=== PATIENT | female | born 1940 | race Caucasian/White ===

== ENCOUNTER 2023-10-30 21:49 | Emergency (ER) | payer OTHER, SELFPAY ==
[2023-10-30 21:51] VITALS: BP 140/82
[2023-10-30 22:14] LABS: % Basophils 0.6 % (0-2); % Eosinophils 1.6 % (0-6); % Immature Granulocytes 0.4 % (0-0.5); % Lymphocytes 17.4 % (20.5-51.1); % Monocytes 5.3 % (1.7-9.3); % Neutrophils 74.7 % (42.2-75.2); Absolute Basophils 0.1 10^3/uL (0-0.2); Absolute Eosinophils 0.1 10^3/uL (0-0.7); Absolute Lymphocytes 1.4 10^3/uL (1.2-3.4); Absolute Monocytes 0.4 10^3/uL (0.1-0.6); Absolute Neutrophils 6.2 10^3/uL (1.4-6.5); Hematocrit 39.7 % (37.0-47.0); Hemoglobin 13.5 g/dL (12.0-16.0); Mean Corpuscular Hgb 29.9 pg (27.0-31.0); Mean Platelet Volume 10.4 fL (7.4-10.4); Nucleated Red Blood Cells % 0 %; Platelet Count 349 10^3/uL (130-400); Red Blood Cell Count 4.51 10^6/uL (4.20-5.40); Red Cell Dist. Width 14.6 % (11.5-14.5); White Blood Cell Count 8.3 10^3/uL (4.8-10.8)
[2023-10-30 22:20] LABS: ALT (SGPT) 14 U/L (0-35); AST (SGOT) 22 U/L (14-36); Alkaline Phosphatase 92 U/L (38-126); Blood Urea Nitrogen 12 mg/dl (7-17); Calcium 9.6 mg/dl (8.4-10.2); Carbon Dioxide 24 mmol/L (22-30); Chloride 106 mmol/L (98-107); Glucose 158 mg/dl (70-99); Lipase 188 U/L (23-300); Potassium 3.5 mmol/L (3.5-5.1); Sodium 136 mmol/L (135-145); Total Bilirubin 0.8 mg/dl (0.2-1.3); Total Protein 7.4 g/dl (6.3-8.2); eGFR > 60.00
[2023-10-30 22:47] VITALS: BMI 21.2
--- NOTE | 2023-10-30 22:48 | ED.GENMED ---
History of Present Illness
General
Chief Complaint: Abdominal Pain
Source: patient
Exam Limitations: none
Time Seen by Provider: 10/30/23 22:34
Travel History
Have you had any contact with someone who has COVID-19?: No
Do you have any symptoms of coronavirus? Fever > 100 degrees, chills, cough, shortness of breath, sore throat, loss of taste or smell, muscle aches, or headache?: No
History of Present Illness
History of Present Illness:
This is a 82 year old female that comes in with c/o abd pain. States that this started on today. States that she was diagnosed with a UTI on Sunday and was placed on Nitrofurantoin. States that her abd pain comes and goes. States that she is
nauseated and had diarrhea today. States that she also had chills. Patient denies an headache at this time but daughter states that she had a headache. Denies any fever, chest pain, SOB, vomiting, headache, dizziness, urinary burning or frequency.
Past History
Past History
ED Past Medical History: Asthma, HTN, Hypercholesterolemia and Other (Hep B, UTI)
ED Past Surgical History: Appendectomy, Cholecystectomy, Orthopedic (Right knee replacement and then revision, ORIF of Humerus. ), Tonsilectomy and Other (Partial thyroidectomy)
Social History
Tobacco: Former smoker
Alcohol: None
Personal:
Living: alone
Review of Systems
Review of Systems
All Other Systems: ROS reviewed and negative except as documented in HPI and ROS
Constitutional: Reports chills; Denies fever
EENT: Reports no symptoms
Respiratory: Reports no symptoms; Denies cough or trouble breathing
Phy Exam
General Physical Exam
General Presentation: mild distress
General age: appears stated age
General Skin: warm and dry
General Habitus: elderly
General Mental: alert
General Hydration: dry mucous membranes
ENT Exam
ENT Exam: TM's normal, pharynx normal and neck supple
Eye Exam
Eye Exam: EOMI
Cardiovascular Exam
Cardiovascular Exam: regular rate/rhythm, no edema, no murmur and normal peripheral pulses
Pulmonary Exam
Pulmonary Exam: lungs clear, no respiratory distress, no rales, chest non tender, no crackles, no rhonchi, no wheezing and no cough
Gastrointestinal Exam
Gastrointestinal Exam: normal bowel sounds, soft, no organomegaly, no pulsatile mass, non distended and tender (Generalized tenderness with palpation)
Musculoskeletal Exam
Musculoskeletal Exam: full ROM and no edema
Skin Exam
Skin Exam: normal color, warm/dry, no rash and no petechia
Psychiatric Exam
Psychiatric Exam: normal mood/affect
Course
Orders/Labs/Results
Orders:
Orders
10/30/23 22:00
CMP [Comprehensive Metabolic Panel] Urgent
Complete Blood Count/With Diff Urgent
Lipase Urgent
10/30/23 22:45
0.9% Sodium Chloride 1000 ml [Nss] 1,000 ml IV BOLUS
10/30/23 22:47
Iohexol [Omnipaque] See Protocol PO NOW STA
Ketorolac [Toradol] 30 mg IV NOW STA
10/30/23 22:55
Phenazopyridine HCl [Pyridium] 100 mg PO NOW STA
10/30/23 23:27
Lactic Acid Urgent
10/30/23 23:53
Urinalysis Reflex To Culture Urgent
Date Specimen was Collected: 10/30/23
Time Specimen was Collected: 23:46
Urine Microscopic Reflex Cult Urgent
10/30/23 23:59
Ondansetron Injectable [Zofran] 4 mg IV NOW STA
10/31/23 01:30
CT Abd/pel (oral only)-[facility] Only Urgent
Comment: pt allergic to iodine, per Virgie ok to modify to oral contrast only
Reason For Exam: Generalized abd pain
Abnormal Lab Results
10/30/23 10/30/23
22:00 23:53
RDW 14.6 H %
(11.5-14.5)
Lymphocytes % 17.4 L %
(20.5-51.1)
Glucose 158 H mg/dl
(70-99)
Urine Ketones 1+ A
(Negative)
Leukocyte Esterase Rfl Trace A
(Negative)
Urine RBC 3-6 A /HPF
(0-2)
Urine Bacteria (Reflex) Few A
(Negative)
10/30/23 22:00
10/30/23 22:00
Glucose nonfasting, Lipae normal at 188, Urine negative for infection (patient is on antibiotic for UTI)
Vital Signs
Initial and Last Documented VS:
Initial Vital Signs
Temp Pulse Resp BP Pulse Ox
98.4 F 92 24 140/82 94
10/30/23 21:51 10/30/23 21:51 10/30/23 21:51 10/30/23 21:51 10/30/23 21:51
Last Documented Vital Signs
Temp Pulse Resp BP Pulse Ox
98.4 F 90 15 149/93 96
10/30/23 21:51 10/31/23 01:00 10/31/23 01:00 10/31/23 00:00 10/31/23 01:00
MDM/Problems Addressed
Differential Diagnosis Includes:
Enteritis, UTI, Bladder spasm
MDM/Problems Addressed:
This is a 82 year old female that comes in with c/o abd pain that comes and goes. States that she was diagnosed with a UTI on Sunday and patient was placed on Nitrofurantoin. States that she has nausea, diarrhea today and that her stomach pain is
all over. States that she has had chills and her daughter states that she has had a headache but patient denies.
Will check labs, CT abd/pelvis, and give Pyridium to see if this is bladder spasm. Will also give IV fluids.
Back into see patient. Explained that her blood work is normal long with her lactic acid. Urine at this time is negative for infection so explained that the antibiotic is working. Feel that she may have been having bladder spasms. Will give patient
Pyridium and Zofran for nausea. Patient to increase her water intake to 8-8oz glasses daily. Follow up with the family doctor for recheck. Return with fever, increased or changing pain.
Chronic conditions affecting care:
UTI
Acute Exacerbation and/or Progression of Chronic Illness:
UTI
*Radiology
Radiology exam reviewed: radiology read reviewed (CT night hawk- Comparison with 09/16/2022. Decreased sensitivity in the evaluation of the abd viscera due to lack of IV contrast. Again seen, moderate right hydroureteronephrosis with decompression
of the ureter at the level of the pelvic brim. No obstructing stone. Findiings could reflect right-), all reviewed NAD by ED Provider (CT cont- could reflex right sided ureteral obstruction in the setting of stricture. Correlate urologic history. No
evidence of left hydroureteronephrosis or obstructing stone. No signficant perinephric fat stranding. Cholecystectomy. No appendicitis or colits. Diverticulosis without diverticulitis. ) and other (CT cont- No evidence of small bowel obstruction. NO
free fluid or free air. No AAA. Chronic right pelvic fracture. )
*Pulse Oximetry
Patient hypoxic: no
*EKG
Interpreted by ED Provider?: NA
Rate: EKG- N/A
*Rope Coiling Machine Operator Interpretation
Rate: Rope Coiling Machine Operator- N/A
*Critical Care Note
Total Time (30-74mins, 75-104mins- exclusive of procedures): Not Applicable
ED Attending Note
-
Portions of this chart may have been created with voice recognition software.� Occasional wrong word or��sound alike� substitutions may have occurred due to the inherent limitations of voice recognition software.
Discharge Plan
Departure
Patient Disposition: Home (Routine Discharge)
Date of Disposition: 10/31/23
Time of Disposition: 02:23
Patient with high blood pressure during this ER visit?: Yes
Condition: Good
Covid-19: Not Applicable
Discharge Problem:
Painful bladder spasm
Instructions: Bladder Spasms (DC), BLOOD PRESSURE
Prescriptions:
New
phenazopyridine [Pyridium] 100 mg tablet
100 mg PO TID PRN (Reason: Bladder spasm and pain) Qty: 6 0RF
ondansetron 4 mg tablet,disintegrating
4 mg PO Q8H PRN (Reason: nausea and vomiting) Qty: 7 0RF
No Action
amlodipine 2.5 MG tablet
2.5 mg PO DAILY
levothyroxine 50 MCG tablet
50 mcg PO DAILY
folic acid 1 MG tablet
1 mg PO DAILY
alendronate [Fosamax] 70 mg Tablet
70 mg PO FR
pravastatin 10 mg tablet
10 mg PO QPM
methotrexate sodium 2.5 mg Tablet
10 mg PO FR
cholecalciferol (vitamin D3) [Vitamin D3] 25 mcg (1,000 unit) Tablet
25 mcg PO DAILY
cranberry extract [Ellura] 200 mg Capsule
36 mg PO DAILY
infliximab [Remicade] 100 mg Recon Soln
100 mg IV Q8W
Hold Instructions: Resume on 05/07/23.
losartan 25 mg Tablet
25 mg PO DAILY Qty: 30 0RF
Patient Comments:
09/16/22-patient only takes 1 a day , and she need the smallest tablet avaiable b/e she can not swallow the larger tablets, patient bring in her own losartan
lorazepam 0.5 mg Tablet
0.5 mg PO HS PRN (Reason: sleep)
Patient Comments:
10/30/2023: last filled 09/08/23, 40 tabs for 40 days from [facility]#[id number]
gabapentin 300 mg capsule
300 mg PO HS Qty: 10 0RF
nitrofurantoin monohyd/m-cryst 100 mg capsule
100 mg PO BID
Patient Comments:
10/30/2023: Family states this was just started. Med filled 10/29/23, unsure of last dose.
Referrals:
Nevin Child MD [Family Provider] - Follow up in 5-7 days
Activity Restrictions/Additional Instructions:
As discussed, your blood work is normal along with your CT scan. There is no bowel obstruction or inflammatory process. There are no ureteral calculus. Your discomfort may have been from bladder spasm. You have had a prescription sent to your
Pharmacy for Pyridium to help with the pain and spasming and also a Prescription for Zofran to help with any nausea. Please increase your water intake to 8-8oz glasses daily. Follow up with the family doctor in the next 5-7 days for recheck. IF YOU
HAVE FEVER, INCREASED OR CHANGING PAIN OR YOU HAVE ANY OTHER CONCERNS PLEASE RETURN TO THE EMERGENCY ROOM.
Interventions
Interventions:
*Risk Screen - Suicide Last Done: 10/30/23 21:51
*Neglect/Abuse Screening Last Done: 10/30/23 21:51
ED- Fall Risk Assessment Last Done: 10/30/23 23:25
VT-Hljkes-Wlpqtobzkv Assessment Last Done: 10/30/23 23:25
ED- Neurological Assessment Last Done: 10/30/23 23:25
[2023-10-30] MEDS: Pyridium 100 MG PO (23:39)
[2023-10-30] MEDS: TORADOL 30 MG IV (23:39)
[2023-10-30 23:40] VITALS: BP 148/94
[2023-10-30] MEDS: OMNIPAQUE 50 ML PO (23:41)
[2023-10-30] MEDS: NSS 1000 IV (23:42)
[2023-10-30 23:56] LABS: Lactic Acid 1.6 mmol/L (0.7-2.0)
[2023-10-30] MEDS: ZOFRAN 4 MG IV (23:59)
[2023-10-31] VITALS: BP 149/93
[2023-10-31 00:02] LABS: Urine Albumin Negative (Neg - Trace); Urine Bilirubin Negative (Negative); Urine Character Clear (Clear); Urine Color Yellow; Urine Glucose Negative (Negative); Urine Ketone 1+ (Negative); Urine Leukocyte Trace (Negative); Urine Nitrite Negative (Negative); Urine Occult Blood Negative (Negative); Urine Specific Gravity 1.015 (<1.030); Urine Urobilinogen Negative (Neg - 1+)
[2023-10-31 00:25] LABS: Urine Squamous Cell 0-2 /LPF (Few)
[2023-10-31 00:26] LABS: Urine Bacteria Few (Negative)
[2023-10-31 01:27] VITALS: BP 138/87
[2023-10-31 02:00] VITALS: BP 137/84
== END 2023-10-31 02:30 | disposition home or self-care (01) ==
LOC: EMR 21:49
PROVIDERS: Clinical Nurse Specialist Family Health; EMERGENCY PHYSICIAN Emergency Medicine; FAMILY PHYSICIAN Family Medicine
DX: N32.89 Other specified disorders of bladder (principal); R10.9 Unspecified abdominal pain; R11.0 Nausea; R19.7 Diarrhea, unspecified; R68.83 Chills (without fever); N39.0 Urinary tract infection, site not specified; N13.30 Unspecified hydronephrosis; K57.30 Diverticulosis of large intestine without perforation or abscess without bleeding; I10 Essential (primary) hypertension; E78.00 Pure hypercholesterolemia, unspecified; J45.909 Unspecified asthma, uncomplicated; Z90.49 Acquired absence of other specified parts of digestive tract; Z87.440 Personal history of urinary (tract) infections; Z96.651 Presence of right artificial knee joint; Z87.891 Personal history of nicotine dependence; Z91.040 Latex allergy status; Z88.5 Allergy status to narcotic agent; Z88.2 Allergy status to sulfonamides; Z88.8 Allergy status to other drugs, medicaments and biological substances; Z91.018 Allergy to other foods
CPT/HCPCS: 99284; 96374; 96375; 96361; 74176; 80053; 81003; 81015; 83605; 83690; 85025

== ENCOUNTER 2024-03-07 17:20 | Emergency (ER) | payer OTHER, SELFPAY ==
[2024-03-07 17:23] VITALS: BP 152/92
[2024-03-07 17:46] LABS: Urine Albumin 3+ (Neg - Trace); Urine Bilirubin Negative (Negative); Urine Character Very Cloudy (Clear); Urine Color Yellow; Urine Glucose Negative (Negative); Urine Ketone Negative (Negative); Urine Leukocyte 2+ (Negative); Urine Nitrite Positive (Negative); Urine Occult Blood 4+ (Negative); Urine Urobilinogen Negative (Neg - 1+)
[2024-03-07 17:52] LABS: Urine White Cell >100 /HPF (0-5)
[2024-03-07 18:33] LABS: ALT (SGPT) 15 U/L (0-35); AST (SGOT) 27 U/L (14-36); Alkaline Phosphatase 57 U/L (38-126); Blood Urea Nitrogen 24 mg/dl (7-17); Calcium 9.7 mg/dl (8.4-10.2); Carbon Dioxide 23 mmol/L (22-30); Chloride 104 mmol/L (98-107); Glucose 135 mg/dl (70-99); Potassium 4.3 mmol/L (3.5-5.1); Sodium 136 mmol/L (135-145); Total Bilirubin 1.1 mg/dl (0.2-1.3); Total Protein 7.5 g/dl (6.3-8.2); eGFR > 60.00
[2024-03-07 18:51] VITALS: BP 121/82
[2024-03-07 18:52] VITALS: BMI 21.9
[2024-03-07 19:00] VITALS: BP 117/73
--- NOTE | 2024-03-07 19:06 | ED.GENMED ---
History of Present Illness
General
Chief Complaint: Urinary Symptoms
Source: patient and records
Time Seen by Provider: 03/07/24 18:27
Nursing documentation reviewed up to this point in time: agreed with
Travel History
Have you had any contact with someone who has COVID-19?: No
Do you have any symptoms of coronavirus? Fever > 100 degrees, chills, cough, shortness of breath, sore throat, loss of taste or smell, muscle aches, or headache?: No
History of Present Illness
History of Present Illness:
Patient is an 83-year-old female presents to the emergency department thinking she has a UTI. Patient complains of frequency and urgency. Patient denies any hematuria but admits to feeling lower abdominal pressure and dysuria as well as
right-sided back pain. Patient denies fever or chills, nausea, vomiting or diarrhea. Patient states this started approximately week ago. Patient saw her physician was put on Pyridium and Augmentin for 3 days. However the symptoms did not resolve
and last night she began to feel poorly again.
Past History
Past History
ED Past Medical History: Asthma, HTN, Hypercholesterolemia, Hypothyroidism and Other (Hep B, UTI, osteoarthritis, degenerative disc disease, anxiety, osteoporosis, insomnia)
ED Past Surgical History: Appendectomy, Cholecystectomy, Orthopedic (Right knee replacement and then revision, ORIF of Humerus. ), Tonsilectomy and Other (Partial thyroidectomy)
Social History
Tobacco: Former smoker
Alcohol: None
Personal:
Living: alone
Review of Systems
Review of Systems
All Other Systems: ROS reviewed and negative except as documented in HPI and ROS
Constitutional: Reports fatigue; Denies fever, night sweats or chills
EENT: Reports no symptoms
Respiratory: Reports no symptoms
ABD/GI: Reports abdominal pain; Denies nausea, vomiting or diarrhea
: Reports dysuria and urgency; Denies bleeding
Musculoskeletal: Reports back pain
Skin: Reports no symptoms
Neurological: Reports no symptoms
Hematologic/Lymphatic: Reports no symptoms
Phy Exam
Physical Exam
Physical Exam:
Physical Exam
General: No apparent distress, alert and appropriate, elderly and frail, well hydrated
HENT: Normocephalic, supple with no lymphadenopathy, no thyromegaly
Eyes: Clear sclera, conjuctiva without injection
Heart: Regular rhythm and rate. No S3, S4. No murmur.
Lungs: No respiratory distress, no stridor, lung sounds clear and equal bilaterally
Abdomen: Soft, mild suprapubic tenderness without guarding or rebound, no organomegaly, minimal right CVA tenderness, BS good
Neuro: Alert and oriented x 3, CN II - XII intact, no motor focality, no cerebellar dysfunction
Skin: no rash
Psychiatric: well kept. interactive and cooperative
Extremities: No edema, cyanosis, tenderness
Course
Orders/Labs/Results
Orders:
Orders
03/07/24 17:35
Comprehensive Metabolic Panel Urgent
Urinalysis Reflex To Culture Urgent
Date Specimen was Collected: 03/07/24
Time Specimen was Collected: 17:27
Urine Microscopic Reflex Cult Urgent
Urine Culture Urgent
JAYLYN Source: U
Specimen Description:
Date Specimen was Collected: 03/07/24
Time Specimen was Collected: 17:27
03/07/24 19:08
Complete Blood Count/With Diff Urgent
Abnormal Lab Results
03/07/24 03/07/24
17:35 19:08
RBC 4.11 L 10^6/uL
(4.20-5.40)
MPV 10.7 H fL
(7.4-10.4)
Absolute Neuts (auto) 7.2 H 10^3/uL
(1.4-6.5)
Absolute Lymphs (auto) 1.0 L 10^3/uL
(1.2-3.4)
Absolute Monos (auto) 0.9 H 10^3/uL
(0.1-0.6)
Neutrophils % 77.6 H %
(42.2-75.2)
Lymphocytes % 11.1 L %
(20.5-51.1)
Monocytes % 10.1 H %
(1.7-9.3)
BUN 24 H mg/dl
(7-17)
Glucose 135 H mg/dl
(70-99)
Ur Occult Blood Reflex 4+ A
(Negative)
Urine Nitrite (Reflex) Positive A
(Negative)
Leukocyte Esterase Rfl 2+ A
(Negative)
Urine WBC (Reflex) >100 A /HPF
(0-5)
Urine Albumin (Reflex) 3+ A
(Neg - Trace)
03/07/24 19:08
03/07/24 17:35
Vital Signs
Initial and Last Documented VS:
Initial Vital Signs
Temp Pulse Resp BP Pulse Ox
98.2 F 95 18 152/92 97
03/07/24 17:23 03/07/24 17:23 03/07/24 17:23 03/07/24 17:23 03/07/24 17:23
Last Documented Vital Signs
Temp Pulse Resp BP Pulse Ox
98.2 F 95 18 121/82 95
03/07/24 17:23 03/07/24 17:23 03/07/24 17:23 03/07/24 18:51 03/07/24 18:52
*Radiology
Radiology exam reviewed: other (na)
*Pulse Oximetry
Patient hypoxic: no
*EKG
Interpreted by ED Provider?: NA
*Hand Grinder Interpretation
Rate: Hand Grinder- N/A
*Critical Care Note
Total Time (30-74mins, 75-104mins- exclusive of procedures): Not Applicable
ED Attending Note
-
Portions of this chart may have been created with voice recognition software.� Occasional wrong word or��sound alike� substitutions may have occurred due to the inherent limitations of voice recognition software.
Discharge Plan
Departure
Patient Disposition: Home (Routine Discharge)
Date of Disposition: 03/07/24
Time of Disposition: 19:27
Patient with high blood pressure during this ER visit?: No
Covid-19: Not Applicable
Discharge Problem:
UTI (urinary tract infection)
Instructions: Urinary Tract Infection, Adult (DC)
Prescriptions:
New
ciprofloxacin HCl [Cipro] 250 mg tablet
250 mg PO BID 3 Days Qty: 6 0RF
No Action
amlodipine 2.5 MG tablet
2.5 mg PO DAILY
levothyroxine 50 MCG tablet
50 mcg PO DAILY
folic acid 1 MG tablet
1 mg PO DAILY
alendronate [Fosamax] 70 mg Tablet
70 mg PO FR
pravastatin 10 mg tablet
10 mg PO QPM
methotrexate sodium 2.5 mg Tablet
10 mg PO FR
cholecalciferol (vitamin D3) [Vitamin D3] 25 mcg (1,000 unit) Tablet
25 mcg PO DAILY
cranberry extract [Ellura] 200 mg Capsule
36 mg PO DAILY
infliximab [Remicade] 100 mg Recon Soln
100 mg IV Q8W
Hold Instructions: Resume on 05/07/23.
losartan 25 mg Tablet
25 mg PO DAILY Qty: 30 0RF
Patient Comments:
09/16/22-patient only takes 1 a day , and she need the smallest tablet avaiable b/e she can not swallow the larger tablets, patient bring in her own losartan
lorazepam 0.5 mg Tablet
0.5 mg PO HS PRN (Reason: sleep)
Patient Comments:
10/30/2023: last filled 12/02/23, 40 tabs for 40 days from [id number]
gabapentin 300 mg capsule
300 mg PO HS Qty: 10 0RF
nitrofurantoin monohyd/m-cryst 100 mg capsule
100 mg PO BID
Patient Comments:
10/30/2023: Family states this was just started. Med filled 10/29/23, unsure of last dose.
phenazopyridine [Pyridium] 100 mg tablet
100 mg PO TID PRN (Reason: Bladder spasm and pain) Qty: 6 0RF
ondansetron 4 mg tablet,disintegrating
4 mg PO Q8H PRN (Reason: nausea and vomiting) Qty: 7 0RF
Activity Restrictions/Additional Instructions:
Continue present medications and therapy. Make sure to drink plenty of fluids. Follow-up with your family doctor in 3 to 4 days.
Interventions
Interventions:
*Risk Screen - Suicide Last Done: 03/07/24 18:52
*General Assessment Last Done: 03/07/24 17:24
*Neglect/Abuse Screening Last Done: 03/07/24 18:52
ED- Fall Risk Assessment Last Done: 03/07/24 18:52
*ED COVID-19 Vaccine History Last Done: 03/07/24 17:24
ED-Female Genitourinary Assessment Last Done: 03/07/24 18:52
Discharge Date and Time
Print Language: SERBIAN
[2024-03-07 19:17] LABS: % Basophils 0.4 % (0-2); % Eosinophils 0.6 % (0-6); % Immature Granulocytes 0.2 % (0-0.5); % Lymphocytes 11.1 % (20.5-51.1); % Monocytes 10.1 % (1.7-9.3); % Neutrophils 77.6 % (42.2-75.2); Absolute Eosinophils 0.1 10^3/uL (0-0.7); Absolute Monocytes 0.9 10^3/uL (0.1-0.6); Absolute Neutrophils 7.2 10^3/uL (1.4-6.5); Hematocrit 37.1 % (37.0-47.0); Hemoglobin 12.3 g/dL (12.0-16.0); Mean Corp Hgb Conc. 33.2 g/dL (33.0-37.0); Mean Corpuscular Hgb 29.9 pg (27.0-31.0); Mean Corpuscular Volume 90.3 fL (81.0-99.0); Mean Platelet Volume 10.7 fL (7.4-10.4); Nucleated Red Blood Cells % 0 %; Platelet Count 219 10^3/uL (130-400); Red Blood Cell Count 4.11 10^6/uL (4.20-5.40); Red Cell Dist. Width 13.9 % (11.5-14.5); White Blood Cell Count 9.3 10^3/uL (4.8-10.8)
[2024-03-07] MEDS: MONUROL 3 GM PO (20:03)
[2024-03-07 20:09] VITALS: BP 124/83
== END 2024-03-07 20:20 | disposition home or self-care (01) ==
LOC: EMR 17:20
PROVIDERS: Emergency Medicine; EMERGENCY PHYSICIAN Emergency Medicine; FAMILY PHYSICIAN Family Medicine
DX: N39.0 Urinary tract infection, site not specified (principal); J45.909 Unspecified asthma, uncomplicated; I10 Essential (primary) hypertension; E78.00 Pure hypercholesterolemia, unspecified; E03.9 Hypothyroidism, unspecified; F41.9 Anxiety disorder, unspecified; M19.90 Unspecified osteoarthritis, unspecified site; M81.0 Age-related osteoporosis without current pathological fracture; Z87.440 Personal history of urinary (tract) infections; Z87.891 Personal history of nicotine dependence; Z90.49 Acquired absence of other specified parts of digestive tract; Z96.651 Presence of right artificial knee joint
CPT/HCPCS: 99283; 80053; 81003; 81015; 85025; 87077; 87086; 87186

== ENCOUNTER → 2024-03-25 12:45 | Outpatient (REF) | payer OTHER, SELFPAY | LOC: HWRAD 12:45 | PROVIDERS: ATTENDING PHYSICIAN Family Medicine | DX: R35.0 Frequency of micturition (principal); R10.2 Pelvic and perineal pain | CPT/HCPCS: 76770; 76856 ==

== ENCOUNTER 2024-03-31 21:02 | Emergency (ER) | payer OTHER, SELFPAY ==
[2024-03-31 21:22] VITALS: BP 133/94
[2024-03-31 21:46] LABS: % Basophils 0.8 % (0-2); % Eosinophils 3.9 % (0-6); % Immature Granulocytes 0.2 % (0-0.5); % Lymphocytes 34.6 % (20.5-51.1); % Monocytes 9.5 % (1.7-9.3); Absolute Eosinophils 0.2 10^3/uL (0-0.7); Absolute Lymphocytes 1.8 10^3/uL (1.2-3.4); Absolute Monocytes 0.5 10^3/uL (0.1-0.6); Absolute Neutrophils 2.7 10^3/uL (1.4-6.5); Hematocrit 38.6 % (37.0-47.0); Hemoglobin 12.5 g/dL (12.0-16.0); Mean Corp Hgb Conc. 32.4 g/dL (33.0-37.0); Mean Corpuscular Hgb 29.6 pg (27.0-31.0); Mean Corpuscular Volume 91.3 fL (81.0-99.0); Mean Platelet Volume 11.4 fL (7.4-10.4); Nucleated Red Blood Cells % 0 %; Platelet Count 204 10^3/uL (130-400); Red Blood Cell Count 4.23 10^6/uL (4.20-5.40); Red Cell Dist. Width 14.8 % (11.5-14.5); White Blood Cell Count 5.2 10^3/uL (4.8-10.8)
[2024-03-31 21:56] LABS: ALT (SGPT) 19 U/L (0-35); AST (SGOT) 31 U/L (14-36); Albumin 4.3 g/dl (3.5-5.0); Alkaline Phosphatase 64 U/L (38-126); Blood Urea Nitrogen 22 mg/dl (7-17); Calcium 9.9 mg/dl (8.4-10.2); Carbon Dioxide 27 mmol/L (22-30); Chloride 103 mmol/L (98-107); Glucose 104 mg/dl (70-99); Lipase 202 U/L (23-300); Potassium 4.1 mmol/L (3.5-5.1); Sodium 137 mmol/L (135-145); Total Bilirubin 1.6 mg/dl (0.2-1.3); Total Protein 7.6 g/dl (6.3-8.2); eGFR > 60.00
[2024-04-01 00:46] LABS: Urine Albumin Trace (Neg - Trace); Urine Bilirubin Negative (Negative); Urine Character Clear (Clear); Urine Color Yellow; Urine Glucose Negative (Negative); Urine Ketone Negative (Negative); Urine Leukocyte Trace (Negative); Urine Nitrite Negative (Negative); Urine Occult Blood Trace (Negative); Urine Urobilinogen Negative (Neg - 1+); Urine pH 6.5 (5.0-9.0)
[2024-04-01 01:03] LABS: Urine Amorphous Seen; Urine Squamous Cell >30 /LPF (Few)
[2024-04-01 01:04] LABS: Urine Bacteria Few (Negative)
[2024-04-01] MEDS: AUGMENTIN 875 MG/125 MG 1 TABLET PO (01:32)
--- NOTE | 2024-04-01 01:45 | ED.GENMED ---
History of Present Illness
General
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
Source: patient, records and family
Exam Limitations: none
Time Seen by Provider: 04/01/24 01:12
Nursing documentation reviewed up to this point in time: agreed with
History of Present Illness
History of Present Illness:
83-year-old female history of RA, presents with dysuria frequency she gets frequent UTIs since starting Remicade, seen by her PCP and gynecology/uro
Most recently on Cipro previously on Augmentin which she states works for her daughter believes she is not on a long of course she has had no fever no nausea no vomiting
Past History
Past History
ED Past Medical History: Asthma, HTN, Hypercholesterolemia, Hypothyroidism and Other (Hep B, UTI, osteoarthritis, degenerative disc disease, anxiety, osteoporosis, insomnia)
ED Past Surgical History: Appendectomy, Cholecystectomy, Orthopedic (Right knee replacement and then revision, ORIF of Humerus. ), Tonsilectomy and Other (Partial thyroidectomy)
Social History
Tobacco: Former smoker
Alcohol: None
Personal:
Living: alone
Review of Systems
Review of Systems
All Other Systems: Not applicable
Constitutional: Denies fever, fatigue or chills
EENT: Reports no symptoms
Respiratory: Reports no symptoms
Cardiac: Reports no symptoms
ABD/GI: Reports abdominal pain
: Reports dysuria, frequency and urgency; Denies flank pain
Musculoskeletal: Reports no symptoms
Phy Exam
Physical Exam
Physical Exam:
Physical Exam
General: no apparent distress, not acutely ill
Neck: No general
Heart: s1/s2 regular rate and rhythm, no murmur. equal radial pulses.
Lungs: no acute respiratory distress.
Abdomen: Mild suprapubic tenderness no CVA tenderness
Neuro: alert and oriented. no focal neurological deficits
Skin: no rash
Psychiatric: well kept. interactive and cooperative
Extremities: no edema.
Course
Orders/Labs/Results
Orders:
Orders
03/31/24 21:24
Urinalysis Reflex To Culture Urgent
Date Specimen was Collected: 03/31/24
Time Specimen was Collected: :24
03/31/24 21:35
Complete Blood Count/With Diff Urgent
Comprehensive Metabolic Panel Urgent
Lipase Urgent
04/01/24 00:40
Urine Microscopic Reflex Cult Urgent
Urine Culture Urgent
JAYLYN Source: U
Specimen Description:
Date Specimen was Collected: 03/31/24
Time Specimen was Collected: 21:24
04/01/24 01:28
Amoxicillin 875 mg/Clav 125 mg [Augmentin 875 mg/125 mg] 1 tablet PO NOW STA
Abnormal Lab Results
03/31/24 04/01/24
21:35 00:40
MCHC 32.4 L g/dL
(33.0-37.0)
RDW 14.8 H %
(11.5-14.5)
MPV 11.4 H fL
(7.4-10.4)
Monocytes % 9.5 H %
(1.7-9.3)
BUN 22 H mg/dl
(7-17)
Glucose 104 H mg/dl
(70-99)
Total Bilirubin 1.6 H mg/dl
(0.2-1.3)
Ur Occult Blood Reflex Trace A
(Negative)
Leukocyte Esterase Rfl Trace A
(Negative)
Urine RBC 3-6 A /HPF
(0-2)
Urine WBC (Reflex) 11-15 A /HPF
(0-5)
Urine Bacteria (Reflex) Few A
(Negative)
03/31/24 21:35
03/31/24 21:35
Vital Signs
Initial and Last Documented VS:
Initial Vital Signs
Temp Pulse Resp BP Pulse Ox
97.9 F 75 18 133/94 96
03/31/24 21:22 03/31/24 21:22 03/31/24 21:22 03/31/24 21:22 03/31/24 21:22
Last Documented Vital Signs
Temp Pulse Resp BP Pulse Ox
97.9 F 75 18 133/94 96
03/31/24 21:22 03/31/24 21:22 03/31/24 21:22 03/31/24 21:22 03/31/24 21:22
MDM/Problems Addressed
Differential Diagnosis Includes:
UTI, no fever no nausea or vomiting
MDM/Problems Addressed:
Urinary frequency
Chronic conditions affecting care: Immunosuppressed
Acute Exacerbation and/or Progression of Chronic Illness:
ra
Acute Exacerbation and/or Progression of Chronic Illness: Immunosuppressed
*Pulse Oximetry
Patient hypoxic: no
*Critical Care Note
Total Time (30-74mins, 75-104mins- exclusive of procedures): Not Applicable
Data Reviewed
Review of Other/Old Records Reveals: Other (Most recent urine culture)
Source: patient, records and family
Update Note
Update Note:
Patient nontoxic most recent urine culture noted she is tolerated Augmentin previously
ED Attending Note
-
Portions of this chart may have been created with voice recognition software.� Occasional wrong word or��sound alike� substitutions may have occurred due to the inherent limitations of voice recognition software.
Discharge Plan
Departure
Patient Disposition: Home (Routine Discharge)
Date of Disposition: 04/01/24
Time of Disposition: 01:33
Patient with high blood pressure during this ER visit?: No
Condition: Good
Discharge Problem:
Acute UTI
Instructions: Urinary Tract Infection, Adult (DC)
Prescriptions:
New
amoxicillin-pot clavulanate [Augmentin] 500-125 mg tablet
1 tab PO Q12H Qty: 14 0RF
No Action
amlodipine 2.5 MG tablet
2.5 mg PO DAILY
levothyroxine 50 MCG tablet
50 mcg PO DAILY
folic acid 1 MG tablet
1 mg PO DAILY
alendronate [Fosamax] 70 mg Tablet
70 mg PO FR
pravastatin 10 mg tablet
10 mg PO QPM
methotrexate sodium 2.5 mg Tablet
10 mg PO FR
cholecalciferol (vitamin D3) [Vitamin D3] 25 mcg (1,000 unit) Tablet
25 mcg PO DAILY
cranberry extract [Ellura] 200 mg Capsule
36 mg PO DAILY
infliximab [Remicade] 100 mg Recon Soln
100 mg IV Q8W
Hold Instructions: Resume on 05/07/23.
losartan 25 mg Tablet
25 mg PO DAILY Qty: 30 0RF
Patient Comments:
09/16/22-patient only takes 1 a day , and she need the smallest tablet avaiable b/e she can not swallow the larger tablets, patient bring in her own losartan
lorazepam 0.5 mg Tablet
0.5 mg PO HS PRN (Reason: sleep)
Patient Comments:
10/30/2023: last filled 09/08/23, 40 tabs for [address] [facility]#[id number]
gabapentin 300 mg capsule
300 mg PO HS Qty: 10 0RF
nitrofurantoin monohyd/m-cryst 100 mg capsule
100 mg PO BID
Patient Comments:
10/30/2023: Family states this was just started. Med filled 10/29/23, unsure of last dose.
phenazopyridine [Pyridium] 100 mg tablet
100 mg PO TID PRN (Reason: Bladder spasm and pain) Qty: 6 0RF
ondansetron 4 mg tablet,disintegrating
4 mg PO Q8H PRN (Reason: nausea and vomiting) Qty: 7 0RF
ciprofloxacin HCl [Cipro] 250 mg tablet
250 mg PO BID 3 Days Qty: 6 0RF
Referrals:
Kimberly Michelle DO [Active] - Next open appointment
Nevin Child MD [Family Provider] - Next open appointment
Interventions
Interventions:
*Risk Screen - Suicide Last Done: 04/01/24 00:25
*General Assessment Last Done: 04/01/24 00:42
*Neglect/Abuse Screening Last Done: 04/01/24 01:38
ED- Fall Risk Assessment Last Done: 04/01/24 00:42
*ED COVID-19 Vaccine History Last Done: 04/01/24 00:25
ED-Female Genitourinary Assessment Last Done: 04/01/24 00:42
Discharge Date and Time
Print Language: BENGALI
== END 2024-04-01 01:57 | disposition home or self-care (01) ==
LOC: EMR 21:02
PROVIDERS: EMERGENCY PHYSICIAN Emergency Medicine; FAMILY PHYSICIAN Family Medicine
DX: N39.0 Urinary tract infection, site not specified (principal); M06.9 Rheumatoid arthritis, unspecified; J45.909 Unspecified asthma, uncomplicated; I10 Essential (primary) hypertension; E78.00 Pure hypercholesterolemia, unspecified; E03.9 Hypothyroidism, unspecified; M19.90 Unspecified osteoarthritis, unspecified site; F41.9 Anxiety disorder, unspecified; M81.0 Age-related osteoporosis without current pathological fracture; G47.00 Insomnia, unspecified; D84.81 Immunodeficiency due to conditions classified elsewhere; D84.821 Immunodeficiency due to drugs; Z87.440 Personal history of urinary (tract) infections; Z87.891 Personal history of nicotine dependence; Z90.49 Acquired absence of other specified parts of digestive tract; Z96.651 Presence of right artificial knee joint
CPT/HCPCS: 99283; 80053; 81003; 81015; 83690; 85025; 87086